=== PATIENT | male | born 1950 | race Caucasian/White ===

== ENCOUNTER → 2016-06-25 | Emergency (ER) | payer BC, OTHER ==
[~2016-06-25] MED LIST: FUROSEMIDE 40 MG/4 ML INJECTABLE VIAL IVPUSH ONE; FUROSEMIDE 40 MG/4 ML INJECTABLE VIAL ONE
[2016-06-25 17:42] VITALS: BP 125/57; PULSE 79; TEMP 98.4; BMI 48.5
--- NOTE | 2016-06-25 19:47 | PDOC ---
History of Present Illness <Lemuel Peralta - Last Filed: 06/25/16 23:24> - General History Source: Patient, Family (Daughter ) Exam Limitations: No Limitations - History of Present Illness Initial Comments: 06/25/16 22:20 The patient is a 66 year old male, with a significant past medical history of hypertension, hyperlipidemia, atrial fibrillation (on Xarelto), chronic lower extremity edema and obesity, who presents to the emergency department with worsening bilateral lower extremity edema for the past week. The patient reports that he returned to the [place] after spending a month in the [place] a couple of days ago. The patients daughter is at the bedside. She reports that the patient was seen at a hospital in when he first began to notice that his lower extremity edema was worsening. However, it is unclear what type of workup was done at the hospital in . Due to the worsening bilateral lower extremity edema, the patient's daughter brought him to the ED today for further evaluation. The patient is additionally reporting what he believes is an abscess to his buttocks. The patient denies chest pain. The patient denies fever, chills, nausea, vomiting, diarrhea or abdominal pain. Allergies: None reported. Past Surgical History: None reported. Social History: Current everyday smoker (1.5 packs/day). Reports regular alcohol consumption. Denies drug use. PCP: Dr. Brody Dash <Karen Vargas - Last Filed: 06/25/16 23:55> - General Chief Complaint: Edema Stated Complaint: SWOLLEN LEGS Time Seen by Provider: 06/25/16 19:47 Past History - Past Medical History CVA: Yes (2) HTN: Yes Hypercholesterolemia: Yes Other medical history: CHRONIC LEG SWELLING - Psycho/Social/Smoking Cessation Hx Suicidal Ideation: No Smoking History: Current every day smoker Number of Cigarettes Smoked Daily: 30 Information on smoking cessation initiated: No Hx Alcohol Use: Yes (DAILY) Drug/Substance Use Hx: No <Lemuel Peralta - Last Filed: 06/25/16 23:24> <Karen Vargas - Last Filed: 06/25/16 23:55> - Past Medical History Allergies/Adverse Reactions: Allergies Allergy/AdvReac Type Severity Reaction Status Date / Time No Known Allergies Allergy Verified 06/25/16 17:43 Home Medications: Ambulatory Orders Furosemide [Lasix -] 40 mg PO DAILY #30 tablet 06/25/16 Nystatin Ointment [Mycostatin Ointment -] 1 applic TP BID #1 tube 06/25/16 Review of Systems - Review of Systems Able to Perform ROS?: Yes Comments:: 06/25/16 21:01 CONSTITUTIONAL: No fever, no chills, no fatigue EYES: No visual changes ENT: No ear pain, no sore throat CARDIOVASCULAR: No chest pain, no palpitations RESPIRATORY: No cough, no SOB GI: No abdominal pain, no nausea, no vomiting, no constipation, no diarrhea GENITOURINARY: No dysuria, no frequency, no hematuria MUSCULOSKELETAL: No back pain, no joint pain, no myalgias EXTREMITY: +Bilateral lower extremity edema SKIN: +Abscess to the buttocks. No rash NEURO: No headache <Karen Vargas - Last Filed: 06/25/16 23:55> *Physical Exam - Vital Signs Last Vital Signs Temp Pulse Resp BP Pulse Ox 98.4 F 79 18 125/57 92 L 06/25/16 17:37 06/25/16 17:37 06/25/16 17:37 06/25/16 17:37 06/25/16 17:37 - Physical Exam Comments: 06/25/16 23:30 EXAMINATION CONSTITUTIONAL: Alert and awake, morbidly obese, in no distress HEAD: Normocephalic; atraumatic EYES: PERRL; EOM intact ENMT: Plethoric; External appears normal; normal oropharynx NECK: Supple; non-tender; no cervical lymphadenopathy CARD: Irregularly irregular; no murmurs, rubs, or gallops RESP: Distant breath sounds bilaterally due to body habitus; Normal chest excursion with respiration; breath sounds clear and equal bilaterally; no wheezes, rhonchi, or rales ABD: Soft, non-distended; non-tender; no palpable organomegaly, no palpable hernias; AK: Excoriated erythematous skin to the intergluteal fold with several well demarcated lesion consistent with intertriginous candidiasis EXT: Lower extremities: edematous (+2), erythematous, cold to touch, with a minor abrasion to the left mid tibia draining clear fluid; dorsalis pedis and tibialis posterior are decreased bilaterally due to edema; SKIN: Warm, dry, no rash NEURO: ANO 3, moving all externally symmetrically <Lemuel Peralta - Last Filed: 06/25/16 23:24> - Vital Signs Last Vital Signs Temp Pulse Resp BP Pulse Ox 98.4 F 79 18 125/57 92 L 06/25/16 17:37 06/25/16 17:37 06/25/16 17:37 06/25/16 17:37 06/25/16 17:37 <Karen Vargas - Last Filed: 06/25/16 23:55> Heart Score/ECG Review #1 ECG reviewed & interpreted by me at: 21:24 (Vent Rate: 60 bpm. Atrial fibrillation. Incomplete right bundle branch block. Left anterior fascicular block. Poor R wave progression in the precordial leads. ) <Karen Vargas - Last Filed: 06/25/16 23:55> ED Treatment Course - LABORATORY CBC & Chemistry Diagram: 06/25/16 21:00 06/25/16 21:00 <Lemuel Peralta - Last Filed: 06/25/16 23:24> - LABORATORY CBC & Chemistry Diagram: 06/25/16 21:00 06/25/16 21:00 <Karen Vargas - Last Filed: 06/25/16 23:55> Medical Decision Making - Medical Decision Making 06/25/16 23:34 Patient is a morbidly obese 66-year-old male with history of hypertension, hyperlipidemia, atrial fibrillation, chronic lower extremity edema presents with worsening lower extremity edema for the past month while in the [facility] [place]. In the ER, patient is awake and alert, hypoxemic with room oxygen saturation of 92%, in no respiratory distress. Chest x-ray reveals no evidence of infiltrate or effusion or cardiomegaly. I suspect chronic baseline hypoxemia due to heavy smoking and likely COPD. Patient's lower extremity edema is likely related to noncompliance with his Lasix regimen and unlikely represents cellulitis. Patient is afebrile and CBC reveals no evidence of leukocytosis. EKG reveals atrial fibrillation with ventricular rate of 60. Patient is currently taking Xarelto. Patient has received IV Lasix with successful diuresis ; bilateral lower externally Doppler ultrasound reveals no evidence of DVT in either lower extremity. Patient also has intertrigo in the intergluteal fold which will require nystatin treatment. Will discharge with PMD follow-up at this time. <Lemuel Peralta - Last Filed: 06/25/16 23:24> - Medical Decision Making 06/25/16 23:12 EXAM: US/DUPLEX VASCUL US - 2 LEGS Reviewed By: Dr. Rico James IMPRESSION: There is no sonographic evidence of deep vein thrombosis. If there is clinical concern for possible isolated calf vein thrombosis or if there is a clinical diagnosis of uncomplicated superficial thrombophlebitis, then correlation with follow up sonography is suggested in approximately 3-7 days. There is no obvious popliteal cyst. <Karen Vargas - Last Filed: 06/25/16 23:55> *DC/Admit/Observation/Transfer - Attestations Physician Attestion: 06/25/16 23:24 The documentation was prepared by the scribe under my direct supervision. I have reviewed the documentation which correctly represents the findings, medical decision-making and critical action taken by me. <Lemuel Peralta - Last Filed: 06/25/16 23:24> - Attestations Scribe Attestion: 06/25/16 19:49 Documentation prepared by Karen Vargas, acting as medical assistant supervisor for Lemuel Peralta MD. <Karen Vargas - Last Filed: 06/25/16 23:55> Diagnosis at time of Disposition: Intertrigo Leg edema Qualifiers: Laterality: bilateral Qualified Code(s): R60.0 - Localized edema - Discharge Dispostion Disposition: HOME Condition at time of disposition: Stable - Prescriptions Prescriptions: Furosemide [Lasix -] 40 mg PO DAILY #30 tablet Nystatin Ointment [Mycostatin Ointment -] 1 applic TP BID #1 tube - Referrals Referrals: Brody Dash MD [Primary Care Provider] - - Patient Instructions Printed Discharge Instructions: DI for Peripheral Edema -- Bilateral, Yeast Infection-Skin
[2016-06-25 21:16] LABS: BASOPHIL 0.2 % (0-2.0); EOSINOPHIL 1.8 % (0-4.5); MCHC 32.2 g/dl (32.0-35.9); MEAN CELL VOLUME 93.3 fl (80-96); MEAN PLT VOLUME 8.5 fl (7.5-11.1); PLATELET COUNT 239 K/MM3 (134-434); RDW 14.3 % (11.9-15.9); WHITE BLOOD COUNT 11.8 K/mm3 (4.0-10.0)
[2016-06-25 21:34] LABS: ALBUMIN 3.2 g/dl (3.4-5.0); ANION GAP 10 (8-16); BILIRUBIN,TOTAL 0.6 mg/dL (0.2-1.0); CO2 34 mmol/L (21-32); COCKROFT - GAULT 146.47; GLUCOSE,RANDOM 105 mg/dL (74-106); SGPT/ALT 33 U/L (12-78); TOT PROT 7.1 g/dl (6.4-8.2)
[2016-06-25 21:36] LABS: ALK PHOS 86 U/L (45-117)
[2016-06-25 21:40] LABS: SGOT/AST 22 U/L (15-37)
--- NOTE | 2016-06-26 14:17 | EKG ---
Test Reason : Blood Pressure : / mmHG Vent. Rate : 060 BPM Atrial Rate : 061 BPM P-R Int : 000 ms QRS Dur : 100 ms QT Int : 398 ms P-R-T Axes : 000 -70 048 degrees QTc Int : 398 ms ATRIAL FIBRILLATION INCOMPLETE RIGHT BUNDLE BRANCH BLOCK LEFT ANTERIOR FASCICULAR BLOCK CANNOT RULE OUT INFERIOR INFARCT (MASKED BY FASCICULAR BLOCK?) , AGE UNDETERMINED ANTEROLATERAL INFARCT , AGE UNDETERMINED ABNORMAL ECG NO PREVIOUS ECGS AVAILABLE Confirmed by NITHYA ESCOBAR MD ([id number]) on 06/26/2016 2:17:31 PM Referred By: Confirmed By:NITHYA ESCOBAR MD
== END | disposition home or self-care (01) ==
LOC: JER 17:34
PROC: 3E033GC Introduction of Other Therapeutic Substance into Peripheral Vein, Percutaneous Approach (ICD-10-PCS; principal; 2016-06-25)
DX: R60.0 Localized edema (principal); L30.4 Erythema intertrigo; I48.91 Unspecified atrial fibrillation; Z79.01 Long term (current) use of anticoagulants; I10 Essential (primary) hypertension; Z86.73 Personal history of transient ischemic attack (TIA), and cerebral infarction without residual deficits; F17.210 Nicotine dependence, cigarettes, uncomplicated; E66.09 Other obesity due to excess calories; Z68.42 Body mass index [BMI] 45.0-49.9, adult
CPT/HCPCS: 71020-TC; 80053; 83880; 93005; 93010; 93970-TC; 96374; 99282-25